=== PATIENT | female | born 1950 | race Two or more races ===

== ENCOUNTER 2018-06-22 05:22 | Day surgery (SDC) | payer OTHER ==
[~2018-06-22 05:22] MED LIST: LEVO-T100 MCG PO; VITAMIN D350000 UNIT PO
[2018-06-22] MEDS ORDERED: MACROBID 100 M100 MG PO (10:23)
[2018-06-22] MEDS ORDERED: TRAMADOL HCL50 MG PO (10:26)
== END 2018-06-22 13:40 | disposition home or self-care (01) ==
LOC: CIR.AMB 05:22
DX: N81.11 Cystocele, midline (principal); N81.5 Vaginal enterocele